=== PATIENT | female | born 1990 | race Two or more races ===

== ENCOUNTER 2022-08-30 18:30 | Emergency (ER) | payer MEDICAID ==
[~2022-08-30] VITALS: Ht 157.5 cm; Wt 90.7 kg
[2022-08-30 20:18] VITALS: BP 112/70
[2022-08-30] MEDS ORDERED: IBUPROFEN 600 MG TABLET PO ONE (21:00)
[2022-08-30] MEDS ORDERED: IBUPROFEN 600 MG TABLET ONE (21:00)
--- NOTE | 2022-08-30 22:45 | NUR ---
Patient discharged to home in stable condition. Written and verbal after care instructions given. Patient verbalizes understanding of instruction.
== END 2022-08-30 22:45 | disposition home or self-care (01) ==
LOC: ER 18:36
DX: R51.9 Headache, unspecified (principal)